=== PATIENT | female | born 1980 | race African-American/Black ===

== ENCOUNTER → 2017-11-22 | Outpatient (CLI) | payer OTHER | LOC: MAMMO 09:56 | PROVIDERS: ATTEND Internal Medicine | DX: Z12.31 Encounter for screening mammogram for malignant neoplasm of breast (principal) | CPT/HCPCS: 77067 ==

== ENCOUNTER → 2018-01-06 | Outpatient (CLI) | payer OTHER ==
--- NOTE | 2018-01-07 08:58 | Diagnostic Imaging Report ---
#[id number] - MGDXLT #UNILATERAL LEFT DIGITAL DIAGNOSTIC MAMMOGRAM WITH SPOT COMPRESSION: 01/06/2018 Comparison is made to exam dated: 11/22/2017 mammogram - [facility]. The tissue of the left breast is extremely dense, which lowers the sensitivity of mammography. No significant masses, calcifications, or other findings are seen in the breast. Three views were obtained revealing a persistent mass in th 8-9 o'clock position that appears slightly oblong with a maximal size of 8-9 mm. Further evaluation with ultrasound is recommended and will be performed today. IMPRESSION: INCOMPLETE: NEEDS ADDITIONAL IMAGING EVALUATION Persistent mass as described above; ultrasound is recommended and will be performed today. Marvin Leigh Jr., D.O. cw/:01/06/2018 14:32:26 Rug Backing Stenciler: Nilam JERONIMO(Rose)(M), [facility] letter sent: Additional Imaging Needed Mammogram BI-RADS: 0 Indeterminate
--- NOTE | 2018-01-07 08:58 | Diagnostic Imaging Report ---
#[id number] - USBRELIMLT ULTRASOUND OF THE LEFT BREAST : 01/06/2018 Comparison is made to exams dated: 01/06/2018 mammogram and 11/22/2017 mammogram - [facility]. Color flow and real-time ultrasound were performed on the left breast with scanning from 6-12 o'clock (going through 9). There is a benign appearing cyst measuring 8 x 4 x 7 mm in the 9 o'clock position 1 cm from the nipple. At 12 o'clock in the subareolar region is a benign appearing cyst measuring 7 x 3 x 6 mm. IMPRESSION: BENIGN There is no sonographic evidence of malignancy. A 3 year screening mammogram is recommended. Marvin Leigh Jr., D.O. cw/:01/06/2018 14:57:45 Rotary Drill Operator Helper: MIGNON JERONIMO, [facility] letter sent: Normal Exam Ultrasound BI-RADS: 2 Benign
== END ==
LOC: MAMMO 13:48
PROVIDERS: ATTEND Internal Medicine
DX: N63.20 Unspecified lump in the left breast, unspecified quadrant (principal)

== ENCOUNTER → 2021-06-25 | Outpatient (CLI) | payer OTHER | LOC: MAMMO 08:34 | PROVIDERS: ATTEND Internal Medicine | DX: Z12.31 Encounter for screening mammogram for malignant neoplasm of breast (principal) | CPT/HCPCS: 77067 ==